=== PATIENT | female | born 1960 | race Two or more races ===

== ENCOUNTER 2024-06-29 19:42 | Emergency (ER) | payer OTHER ==
[~2024-06-29] VITALS: Ht 162.6 cm; Wt 65.8 kg
[2024-06-29] MEDS ORDERED: SULF1TAB48 PO (21:48)
[2024-06-29] MEDS ORDERED: SULFAMETH/TRIMETH 800/160 MG TABLET ONE (22:14)
[2024-06-29] MEDS ORDERED: LIDOCAINE 1%-EPI 1:100,000 20 ML VIAL ONE (22:14)
[2024-06-29] MEDS ORDERED: SODIUM BICARBONATE 4.2 % (NEUT) 5 ML VIAL ONE (22:15)
[2024-06-29] MEDS ORDERED: HYDROMORPHONE 1 MG/1 ML DISP.SYRIN ONE (22:15)
[2024-06-29] MEDS ORDERED: LORAZEPAM 2 MG/1 ML VIAL ONE (22:16)
[2024-06-29] MEDS: SULFAMETH/TRIMETH 800/160 MG TABLET PO ONE (22:25)
[2024-06-29] MEDS: HYDROMORPHONE 1 MG/1 ML DISP.SYRIN IV ONE (22:25)
[2024-06-29] MEDS: LORAZEPAM 2 MG/1 ML VIAL IV ONE (22:25)
[2024-06-29] MEDS: SODIUM BICARBONATE 4.2 % (NEUT) 5 ML VIAL TP ONE (22:38)
[2024-06-29] MEDS: LIDOCAINE 1%-EPI 1:100,000 20 ML VIAL IJ ONE (22:38)
[2024-06-29 23:00] VITALS: BP 117/78; O2SAT 98
[2024-06-29] MEDS ORDERED: ONDANSETRON ODT 4 MG TAB.RAPDIS ONE (23:04)
[2024-06-29] MEDS: ONDANSETRON ODT 4 MG TAB.RAPDIS SL ONE (23:05)
== END 2024-06-29 23:01 | disposition home or self-care (01) ==
LOC: ER 20:16
DX: L02.416 Cutaneous abscess of left lower limb (principal); G43.909 Migraine, unspecified, not intractable, without status migrainosus; Z85.3 Personal history of malignant neoplasm of breast; Z88.1 Allergy status to other antibiotic agents; Z87.39 Personal history of other diseases of the musculoskeletal system and connective tissue; F19.10 Other psychoactive substance abuse, uncomplicated; Z60.2 Problems related to living alone
CPT/HCPCS: 99284; 96374; 10060; 96375; J3490 ×2; J2060; J1171; A4606; A4663; Q0162